=== PATIENT | male | born 1970 | race Caucasian/White ===

== ENCOUNTER → 2016-06-14 | Outpatient (CLI) | payer OTHER ==
[~2016-06-14] MED LIST: ASPIRIN EC325 MG PO; COLACE 100MG C100 MG PO; KLOR-CON 1010 MEQ PO; LISINOPRIL20 MG PO; METOPROLOL TART25 MG PO; PLAVIX 75 MG TA75 MG PO; SIMVASTATIN40 MG PO; VITAMIN D32000 UNI1 PO
[2016-06-14 09:05] LABS: BUN/CREATININE RATIO 16 (0-10)
== END ==
LOC: LAB 08:04
PROVIDERS: Family Medicine
DX: E11.9 Type 2 diabetes mellitus without complications (principal); E78.5 Hyperlipidemia, unspecified; E55.9 Vitamin D deficiency, unspecified
CPT/HCPCS: 36415; 80053; 80061; 83036

== ENCOUNTER → 2016-10-20 | Day surgery (SDC) | payer OTHER ==
[~2016-10-20] VITALS: Ht 185.4 cm; Wt 117.9 kg
== END | disposition home or self-care (01) ==
LOC: OR 07:03
PROVIDERS: Surgery
PROC: 0DJD8ZZ Inspection of Lower Intestinal Tract, Via Natural or Artificial Opening Endoscopic (ICD-10-PCS; principal; 2016-10-20 09:00)
DX: K60.2 Anal fissure, unspecified (principal); K64.8 Other hemorrhoids; K64.4 Residual hemorrhoidal skin tags; E11.9 Type 2 diabetes mellitus without complications; I10 Essential (primary) hypertension; I25.2 Old myocardial infarction; I25.119 Atherosclerotic heart disease of native coronary artery with unspecified angina pectoris; K21.9 Gastro-esophageal reflux disease without esophagitis; K59.09 Other constipation; G47.33 Obstructive sleep apnea (adult) (pediatric); M19.90 Unspecified osteoarthritis, unspecified site; Z87.891 Personal history of nicotine dependence; Z79.82 Long term (current) use of aspirin; Z79.899 Other long term (current) drug therapy; Z98.52 Vasectomy status; Z98.61 Coronary angioplasty status
CPT/HCPCS: 82962; J7120

== ENCOUNTER → 2020-04-01 | Outpatient (CLI) | payer OTHER ==
[~2020-04-01] MED LIST changes: +ACID REDUCER20 MG PO; +ALL DAY ALLERGY10 M2 PO; +ARNUITY ELLIPT50 MCG INH; +ATORVASTATIN CA40 MG PO; +GLUCOPHAGE XR500 MG PO; +IBU800 MG PO; +KEFLEX500 MG PO; +NORCO 5-325 TA1 EACH PO; +VIAGRA50 MG PO; +VITAMIN D350 MCG PO; +[UNRECOGNIZED DRUG - OTHER] TOP
[2020-04-01 08:28] LABS: HEMOGLOBIN 14.5 gm/dl (14.0-17.5); RED BLOOD COUNT 5.12 M/UL (4.20-5.50); WHITE BLOOD COUNT 7.2 K/UL (4.5-11.0)
[2020-04-01 08:52] LABS: BUN/CREATININE RATIO 21 (0-10)
[2020-04-02 13:10] LABS: CREATININE, URINE 75.8 mg/dL (Not Estab.); MICROALB/CREAT RATIO <4 (0-29)
== END ==
LOC: LAB 07:57
PROVIDERS: Family Medicine
DX: E11.9 Type 2 diabetes mellitus without complications (principal); E55.9 Vitamin D deficiency, unspecified; E78.5 Hyperlipidemia, unspecified; I10 Essential (primary) hypertension
CPT/HCPCS: 36415; 80053; 80061; 82043; 82570; 83036; 85027

== ENCOUNTER → 2020-05-29 | Outpatient (CLI) | payer OTHER | LOC: HEART 5 08:06 | DX: I20.8 Other forms of angina pectoris (principal) | CPT/HCPCS: 78452; 93306; A9502 ==

== ENCOUNTER 2021-02-14 21:55 | Inpatient (IN) | payer OTHER ==
[~2021-02-14] VITALS: Ht 185.4 cm; Wt 108.9 kg
[~2021-02-14 21:55] MED LIST changes: -ARNUITY ELLIPT50 MCG INH; -ASPIRIN EC325 MG PO; +ASPIRIN EC81 MG PO; +FLONASE 0.05% N16 GM
[2021-02-14 22:44] LABS: HEMOGLOBIN 15.2 gm/dl (14.0-17.5); RED BLOOD COUNT 5.54 M/UL (4.20-5.50); WHITE BLOOD COUNT 8.5 K/UL (4.5-11.0)
[2021-02-14 23:13] LABS: BUN/CREATININE RATIO 20 (0-10)
[2021-02-15 05:02] LABS: HEMOGLOBIN 14.3 gm/dl (14.0-17.5); RED BLOOD COUNT 5.28 M/UL (4.20-5.50)
[2021-02-15 05:05] LABS: WHITE BLOOD COUNT 5.9 K/UL (4.5-11.0)
[2021-02-15 05:30] LABS: BUN/CREATININE RATIO 21 (0-10)
[2021-02-16 07:19] LABS: HEMOGLOBIN 12.8 gm/dl (14.0-17.5)
[2021-02-16 07:21] LABS: RED BLOOD COUNT 4.73 M/UL (4.20-5.50); WHITE BLOOD COUNT 10.2 K/UL (4.5-11.0)
[2021-02-16 07:56] LABS: BUN/CREATININE RATIO 24 (0-10)
[2021-02-17 06:10] LABS: HEMOGLOBIN 13.4 gm/dl (14.0-17.5); RED BLOOD COUNT 4.82 M/UL (4.20-5.50)
[2021-02-17 06:12] LABS: WHITE BLOOD COUNT 7.6 K/UL (4.5-11.0)
[2021-02-17 06:35] LABS: BUN/CREATININE RATIO 25 (0-10)
--- NOTE | 2021-02-17 13:05 | NUR ---
informed telemetry of telemetry with pulse ox order and was informed that no available pulse ox at this time. requested that as soon as available to please prioritize patient and acknowledged
[2021-02-18 07:42] LABS: HEMOGLOBIN 13.2 gm/dl (14.0-17.5); RED BLOOD COUNT 4.99 M/UL (4.20-5.50); WHITE BLOOD COUNT 8.6 K/UL (4.5-11.0)
[2021-02-19 06:58] LABS: HEMOGLOBIN 13.7 gm/dl (14.0-17.5); RED BLOOD COUNT 5.08 M/UL (4.20-5.50)
[2021-02-19 07:03] LABS: BUN/CREATININE RATIO 31 (0-10)
[2021-02-19 07:19] LABS: WHITE BLOOD COUNT 10.8 K/UL (4.5-11.0)
[2021-02-19] MEDS ORDERED: DEXAMETHASONE6 MG PO (10:20)
[2021-02-19] MEDS ORDERED: IPRAT-ALBUT 0.5-3 ML INH (10:20)
[2021-02-19] MEDS ORDERED: BENZONATATE100 MG PO (10:20)
[2021-02-19] MEDS ORDERED: ELIQUIS 2.5 MG2.5 MG PO (10:34)
[2021-02-19] MEDS ORDERED: AEROECLIPSE II1 EACH INH (10:34)
== END 2021-02-19 13:13 | disposition home or self-care (01) | DRG 177 ==
LOC: ER1 21:55 → M/S 02-15 02:13 → CDU 02-15 02:13 → M/S 02-15 13:48
PROVIDERS: Internal Medicine; Physician Assistant; ADMIT Internal Medicine
PROC: 8E0ZXY6 Isolation (ICD-10-PCS; principal; 2021-02-15)
PROC: XW033E5 Introduction of Remdesivir Anti-infective into Peripheral Vein, Percutaneous Approach, New Technology Group 5 (ICD-10-PCS; 2021-02-15)
PROC: 3E0333Z Introduction of Anti-inflammatory into Peripheral Vein, Percutaneous Approach (ICD-10-PCS; 2021-02-15)
PROC: XW033E5 Introduction of Remdesivir Anti-infective into Peripheral Vein, Percutaneous Approach, New Technology Group 5 (ICD-10-PCS; 2021-02-15)
DX: U07.1 COVID-19 (principal); J12.82 Pneumonia due to coronavirus disease 2019; J96.01 Acute respiratory failure with hypoxia; E87.1 Hypo-osmolality and hyponatremia; I25.10 Atherosclerotic heart disease of native coronary artery without angina pectoris; E78.00 Pure hypercholesterolemia, unspecified; I10 Essential (primary) hypertension; E66.9 Obesity, unspecified; E11.9 Type 2 diabetes mellitus without complications; E78.5 Hyperlipidemia, unspecified; R51.9 Headache, unspecified; Z68.31 Body mass index [BMI] 31.0-31.9, adult; Z79.899 Other long term (current) drug therapy; Z79.82 Long term (current) use of aspirin
CPT/HCPCS: 36415; 36600; 71045; 80053; 81001; 82550; 82553; 82728; 82803; 82962; 83605; 83735; 83874; 84484; 85025; 85027; 85379; 86140; 87040; 87081; 87880; 93005; 96374; 96375; 99285; J0248; J0456; J0696; J1100; J1650; J2405; J7030; U0002

== ENCOUNTER → 2021-03-25 | Outpatient (CLI) | payer OTHER ==
[~2021-03-25] MED LIST changes: +AEROECLIPSE II1 EACH INH; +BENZONATATE100 MG PO; +DEXAMETHASONE6 MG PO; +ELIQUIS 2.5 MG2.5 MG PO; +IPRAT-ALBUT 0.5-3 ML INH
== END ==
LOC: HEART 5 10:23
DX: U07.1 COVID-19 (principal); J12.82 Pneumonia due to coronavirus disease 2019; J96.01 Acute respiratory failure with hypoxia
CPT/HCPCS: 71046

== ENCOUNTER → 2021-07-16 | Outpatient (CLI) | payer OTHER | LOC: EXRD 08:15 | DX: M54.6 Pain in thoracic spine (principal); M47.814 Spondylosis without myelopathy or radiculopathy, thoracic region | CPT/HCPCS: 72070 ==